=== PATIENT | male | born 1950 | race Caucasian/White ===

== ENCOUNTER 2017-01-01 10:27 | Day surgery (SDC) ==
[2017-01-01] MEDS ORDERED: DIPRIVAN 20 ML VIAL IVP ONE (13:00)
[2017-01-01] MEDS ORDERED: VERSED ONE (13:00)
[2017-01-01 14:28] VITALS: BP 141/82; TEMP 97
--- NOTE | 2017-01-02 13:34 | OP ---
INDICATIONS FOR PROCEDURE: 66-year-old gentleman presents for colonoscopy exam. He has a past history of polyps with the last colonoscopy five years ago, unknown pathology. He also has family history of colon polyps involving his mother and a maternal grandfather had colon cancer in his 60's. MEDICATIONS: SEE ANESTHESIA NOTES. PROCEDURE: COLONOSCOPY, SNARE POLYPECTOMY. REPORT: The risks, benefits, alternatives and limitations were discussed in detail with the patient. Informed consent was obtained. After adequate sedation was achieved, a digital rectal exam revealed good tone, no masses. The colonoscope was introduced into the rectum and advanced under direct visual guidance to the cecum. The cecum was identified by the appendiceal orifice and IC valve. I then slowly withdrew the scope in a circumferential manner examining the mucosa quite carefully. I looked on the proximal and distal side of folds and flexures as best as possible. In the distal cecal area there is a small 5 mm polyp that I removed by snare technique. On the distal side of the hepatic flexure there is a small 5 mm polyp that I removed by snare technique. There are several small mouth diverticula scattered throughout the descending and sigmoid colon. No other abnormalities were noted including on retroflex view of the anal canal. The prep was good. The withdrawal time was 11 minutes and 30 seconds. The patient tolerated the procedure well with stable vital signs and pulse oximetry throughout. IMPRESSION: 1. TWO (2) SMALL POLYPS REMOVED. 2. DIVERTICULOSIS. RECOMMENDATIONS: 1. High fiber diet. 2. Office visit as needed. 3. Await polyp pathology. If everything is benign as expected, I recommend repeat colonoscopy examination again in 5 years, sooner if signs or symptoms would indicate otherwise. CC: DR. ALISHA WILLIAMSON
== END 2017-01-01 14:30 | disposition home or self-care (01) ==
LOC: SURG 10:27
PROVIDERS: ATTEND Internal Medicine Gastroenterology
DX: Z09 Encounter for follow-up examination after completed treatment for conditions other than malignant neoplasm (principal); Z86.010 Personal history of colon polyps; D12.0 Benign neoplasm of cecum; D12.3 Benign neoplasm of transverse colon; K57.30 Diverticulosis of large intestine without perforation or abscess without bleeding; Z83.71 Family history of colonic polyps

== ENCOUNTER 2017-08-16 04:36 | Emergency (ER) ==
[2017-08-16 04:47] VITALS: BP 128/76; TEMP 100.7; BMI 32.3
[2017-08-16] MEDS ORDERED: TYLENOL PO STA (05:23)
--- NOTE | 2017-08-16 05:26 | ED.PDOC ---
General ED Provider: Dr. MASSIMO BROOKS Chief Complaint: Urinary Problem Stated Complaint: Burning, frequency, urgency. left flank is hurting fever . no chills Time Seen by Physician: 05:25 Mode of Arrival: Walk-In Information Source: Patient, Family Primary Care Provider: ALISHA CHAUDHARY Nursing and Triage Documentation Reviewed and Agree: Yes Reviewed sepsis parameters & appropriate labs ordered?: Yes System Inflammatory Response Syndrome: Not Applicable Sepsis Protocol: For patient's 13 years and over: Temp is 96.8 and below OR 101 and greater Pulse >90 BPM Resp >20/minute Acutely Altered Mental Status Are patient's symptoms suggestive of a new infection, such as: -Pneumonia -Skin, Soft Tissue -Endocarditis -UTI -Bone, Joint Infection -Implantable Device -Acute Abdominal Infection -Wound Infection -Meningitis -Blood Stream Catheter Infection -Unknown Complaint Exam - Complaint/Exam Patient Complains of: Reports: Dysuria Symptoms Are: Still present Timing: Constant Initial Severity: Moderate Current Severity: Moderate Location of Pain: Reports: Penis Character: Reports: Burning, Dull Aggravating: Reports: Voiding Alleviating: Reports: None Associated Signs and Symptoms: Reports: Decreased urine output, Increased urine frequency, Increased thirst, Decreased activity. Denies: Diaphoresis, Back pain , Fever, Hematuria, Dysuria, Constipation, Blood in stool, Rectal pain, Appetite change, Nausea, Vomiting, Penile swelling, Penile discharge, Lethargy, Scrotal pain, Scrotal swelling, Abdominal Pain Testicular Torsion Risk Factors: Reports: None Surgical Obstruction Risk Factors: Reports: None Related Surgical History: Reports: None Abdominal Findings: Present: CVA Tenderness Differential Diagnoses: Pyelonephritis, UTI Review of Systems - Review Of Systems Constitutional: Reports: Fever, Malaise, Weakness Eyes: Reports: No symptoms Ears, Nose, Mouth, Throat: Reports: No symptoms Respiratory: Reports: No symptoms Cardiac: Reports: No symptoms GI: Reports: No symptoms : Reports: Dysuria, Frequency, Flank pain Musculoskeletal: Reports: No symptoms Skin: Reports: No symptoms Neurological: Reports: No symptoms Endocrine: Reports: No symptoms Hematologic/Lymphatic: Reports: No symptoms All Other Systems: Reviewed and Negative Past Medical History - Past Medical History Previously Healthy: Yes Endocrine: Reports: None Cardiovascular: Reports: Hypertension Respiratory: Reports: None Hematological: Reports: None Gastrointestinal: Reports: None Genitourinary: Reports: None Neuro/Psych: Reports: Migraine Musculoskeletal: Reports: Joint Pain Cancer: Reports: None - Surgical History General Surgical History: Reports: Orthopedic (rt shoulder replacement) - Family History Family History: Reports: None - Social History Smoking Status: Former smoker Hx Substance Use: No Alcohol Screening: Occasionally - Immunizations Tetanus Shot up to Date: (UNKNOWN) Physical Exam - Physical Exam Appearance: Ill-appearing, Obese Eyes: MCKENNA, EOMI, Conjunctiva clear ENT: Ears normal, Nose normal, Oropharynx normal Respiratory: Airway patent, Breath sounds clear, Breath sounds equal, Respirations nonlabored Cardiovascular: RRR, Pulses normal, No rub, No murmur GI/: Tender (left cva) Musculoskeletal: Normal strength, ROM intact, No edema, No calf tenderness Skin: Warm, Dry, Normal color Neurological: Sensation intact, Motor intact, Reflexes intact, Cranial nerves intact, Alert, Oriented Psychiatric: Affect appropriate, Mood appropriate Interpretation - Radiology Interpretation Radiology Interpretation By: Radiologist Radiology Results: Negative Exam Interpreted: CT Scan Re-Evaluation - Re-Evaluation Time of Re-Evaluation: 06:46 Status: Improved Critical Care Note - Critical Care Note Total Time (mins): 30 Course - Course Hematology/Chemistry: 08/16/17 05:45 08/16/17 05:45 Orders, Labs, Meds: Lab Review 08/16/17 08/16/17 08/16/17 05:00 05:45 05:45 WBC 14.73 H RBC 4.91 Hgb 14.2 Hct 39.7 L MCV 80.9 MCH 28.9 MCHC 35.8 H RDW Coeff of Omid 13.2 Plt Count 146 Immature Gran % (Auto) 0.5 Neut % (Auto) 84.8 Lymph % (Auto) 6.4 L [place] % (Auto) 7.7 Eos % (Auto) 0.1 Baso % (Auto) 0.5 Immature Gran # (Auto) 0.1 Neut # (Auto) 12.5 H Lymph # (Auto) 1.0 [place] # (Auto) 1.1 Eos # (Auto) 0.0 Baso # (Auto) 0.1 Sodium 134 L Potassium 3.9 Chloride 105 Carbon Dioxide 20 L Anion Gap 12.9 BUN 15 Creatinine 0.99 Estimated GFR (MDRD) 75.00 BUN/Creatinine Ratio 15.15 Glucose 128 H Lactic Acid Calcium 9.2 Total Bilirubin 0.9 AST 16 ALT 19 Alkaline Phosphatase 49 L Total Protein 6.9 Albumin 3.6 Globulin 3.3 Albumin/Globulin Ratio 1.09 Procalcitonin Urine Color Yellow Urine Clarity Slightly Urine pH 5.5 Ur Specific [place] 1.010 Urine Protein Negative Urine Glucose (UA) Negative Urine Ketones Negative Urine Blood 1+ Urine Nitrite Negative Urine Bilirubin Negative Urine Urobilinogen 0.2 Ur Leukocyte Esterase 2+ Urine Microscopic RBC 0-2 Urine Microscopic WBC 20-30 Ur Squamous Epith Cells 0-2 Urine Bacteria 2+ 08/16/17 08/16/17 05:45 05:45 WBC RBC Hgb Hct MCV MCH MCHC RDW Coeff of Omid Plt Count Immature Gran % (Auto) Neut % (Auto) Lymph % (Auto) [place] % (Auto) Eos % (Auto) Baso % (Auto) Immature Gran # (Auto) Neut # (Auto) Lymph # (Auto) [place] # (Auto) Eos # (Auto) Baso # (Auto) Sodium Potassium Chloride Carbon Dioxide Anion Gap BUN Creatinine Estimated GFR (MDRD) BUN/Creatinine Ratio Glucose Lactic Acid 16.5 Calcium Total Bilirubin AST ALT Alkaline Phosphatase Total Protein Albumin Globulin Albumin/Globulin Ratio Procalcitonin 0.09 Urine Color Urine Clarity Urine pH Ur Specific [place] Urine Protein Urine Glucose (UA) Urine Ketones Urine Blood Urine Nitrite Urine Bilirubin Urine Urobilinogen Ur Leukocyte Esterase Urine Microscopic RBC Urine Microscopic WBC Ur Squamous Epith Cells Urine Bacteria Orders Category Date Time Status BLOOD CULTURE Stat LAB 08/16/17 05:45 Received CBC W/ AUTO DIFF Stat LAB 08/16/17 05:45 Completed COMPREHENSIVE METABOLIC PANEL Stat LAB 08/16/17 05:45 Completed LACTIC ACID Stat LAB 08/16/17 05:45 Completed PROCALCITONIN Stat LAB 08/16/17 05:45 Completed UA [URINALYSIS C & S IF INDICATED] Stat LAB 08/16/17 05:00 Completed URINE CULTURE Stat LAB 08/16/17 05:00 Received Acetaminophen [Tylenol] MEDS 08/16/17 05:23 Discontinued 500 mg PO ONCE STA Ceftriaxone Sodium [Rocephin] MEDS 08/16/17 05:42 Discontinued 1 gm IM ONCE STA Lidocaine HCl/Pf [Lidocaine HCl 1% Sdv] MEDS 08/16/17 05:42 Discontinued 2.1 ml IM ONCE STA CT ABDOMEN/PELVIS WO CONTRAST Stat RADS 08/16/17 05:23 Completed Medications Discontinued Medications Generic Name Dose Route Start Last Admin Trade Name Ileana PRN Reason Stop Dose Admin Acetaminophen 500 mg 08/16/17 05:23 08/16/17 05:27 Tylenol PO 08/16/17 05:24 500 mg ONCE STA Administration Ceftriaxone Sodium 1 gm 08/16/17 05:42 08/16/17 05:59 Rocephin IM 08/16/17 05:43 1 gm ONCE STA Administration Lidocaine HCl 2.1 ml 08/16/17 05:42 08/16/17 05:58 Lidocaine Hcl 1% Sdv IM 08/16/17 05:43 2.1 ml ONCE STA Administration Vital Signs: Temp Pulse Resp BP Pulse Ox 08/16/17 04:37 100.7 F H 106 H 32 H 128/76 95 Departure - Departure Time of Disposition: 06:46 Disposition: HOME SELF-CARE Discharge Problem: UTI (urinary tract infection) Qualifiers: Urinary tract infection type: acute cystitis Hematuria presence: with hematuria Qualified Code(s): N30.01 - Acute cystitis with hematuria Instructions: Urinary Tract Infection in Men (ED) Condition: Stable Pt referred to PMD for follow-up: Yes IPMP verified?: No Additional Instructions: Increase Hydration Take medication with food. Allergies/Adverse Reactions: Allergies No Known Allergies Allergy (Verified 08/16/17 04:48) Home Medications: Ambulatory Orders Cetirizine HCl [Zyrtec] 10 mg PO DAILY 01/01/17 Multivitamin [Multi-Vitamin Daily] 1 each PO DAILY 01/01/17 Propranolol HCl 60 mg PO BEDTIME 01/01/17 Propranolol HCl [Inderal Xl] 120 mg PO DAILY 01/01/17 Tizanidine HCl 4 mg PO BEDTIME 01/01/17 Tramadol HCl 50 mg PO BID 01/01/17 Disposition Discussed With: Patient
[2017-08-16] MEDS ORDERED: LIDOCAINE HCL 1% SDV IM STA (05:42)
[2017-08-16] MEDS ORDERED: ROCEPHIN IM STA (05:42)
--- NOTE | 2017-08-16 05:55 | CT ---
Exam: CT of the abdomen and pelvis without contrast History: Abdominal pain and dysuria Technique: [address] of the abdomen and pelvis without intravascular contrast FINDINGS: The lung bases are clear. No significant liver abnormality. The adrenals, pancreas and spl een are unremarkable. The stomach and hiatus are unremarkable.The gallbladder appears normal. Possibl e left proximal ureter urothelial thickening. There is no hydro ureter or hydronephrosis. Kidneys a nd proximal collecting system are unremarkable otherwise. The appendix is normal. Scattered neely col onic diverticulosis. Scattered colonic diverticulosis of the sigmoid. No pelvic fat inflammation. Possible urinary bladd er wall thickening with mildly distended urinary bladder. Generous prostate gland. No acute finding s of the skeleton. Impression: 1. Left sided ureter urothelial thickening, soft finding. Correlate for possible urinary tract infe ction. 2. Questionable urinary bladder wall thickening without perivesicular stranding. Correlate for cyst itis versus hypertrophy versus non distension pseudo thickening. 3. Neely colonic diverticulosis
== END 2017-08-16 06:45 | disposition home or self-care (01) ==
LOC: ED 04:36
DX: N30.01 Acute cystitis with hematuria (principal)
CPT/HCPCS: 36415; 80053; 81001; 83605; 84145; 85025; 87040; 87086; 87186; 96372; 99283

== ENCOUNTER 2017-09-02 12:12 | Emergency (ER) | payer OTHER ==
[2017-09-02 12:21] VITALS: BP 167/82; TEMP 98.4; BMI 32.4
--- NOTE | 2017-09-02 14:34 | CT ---
Exam: CT abdomen pelvis without intravenous contrast. Comparison: 08/16/2017. Reason for exam: Pain. FINDINGS: No pleural effusion, or focal consolidation in the partially imaged lung bases. The liver is lower in attenuation than the spleen. The gallbladder, pancreas, and adrenal glands appear grossly unremarkable within limitations of a non contrasted study. There is mild left-sided hydronephrosis with moderate left-sided hydroureter and a prominent extraren al pelvis. No nephrolithiasis or ureterolithiasis is seen in the left kidney. No hydronephrosis is seen in the right kidney. There is mild right-sided hydroureter with surroundin g inflammatory change. No nephrolithiasis or ureterolithiasis is seen in the right kidney. There is mild circumferential bladder wall thickening. No calcific densities are seen along the urogenital tract. No focal small bowel dilatation or transition point. The appendix is unremarkable. No intra-abdominal free air or pelvic free fluid. Scattered diverticular disease is seen throughout the colon. No suspicious appearing osteoblastic or osteolytic lesions. Impression: 1. Mild left-sided hydronephrosis with moderate hydroureter without evidence of radiopaque stone in t he left renal collecting system. Image interpretation is limited by the lack of intravenous contrast administration. 2. Mild right-sided hydroureter without evidence of radiopaque stone in the right renal collecting s ystem. 3. Mild circumferential bladder wall thickening. Imaging findings can be seen with cystitis and out let obstruction. Report faxed at [phone] hours on 09/02/2017.
[2017-09-02] MEDS ORDERED: ROCEPHIN IM STA (15:02)
[2017-09-02] MEDS ORDERED: LIDOCAINE HCL 1% SDV IM STA (15:02)
--- NOTE | 2017-09-02 15:07 | ED.PDOC ---
General ED Provider: Dr. SYED LEAL Chief Complaint: Urinary Problem Stated Complaint: HEMATURIA Time Seen by Physician: 12:20 Mode of Arrival: Walk-In Information Source: Patient, Family Exam Limitations: No limitations Primary Care Provider: ALISHA CHAUDHARY Nursing and Triage Documentation Reviewed and Agree: Yes Reviewed sepsis parameters & appropriate labs ordered?: Yes (HEMATURIA GROSS STARTED 1 DAY AGO) System Inflammatory Response Syndrome: Not Applicable Sepsis Protocol: For patient's 13 years and over: Temp is 96.8 and below OR 101 and greater Pulse >90 BPM Resp >20/minute Acutely Altered Mental Status Are patient's symptoms suggestive of a new infection, such as: -Pneumonia -Skin, Soft Tissue -Endocarditis -UTI -Bone, Joint Infection -Implantable Device -Acute Abdominal Infection -Wound Infection -Meningitis -Blood Stream Catheter Infection -Unknown System Inflammatory Response Syndrome: Not Applicable Complaint Exam - Complaint/Exam Patient Complains of: Denies: Scrotal pain (PAINLESS HEMATURIAX1 DAY), Scrotal swelling, Groin pain, Groin swelling, Dysuria Onset/Duration: 1 DAY Symptoms Are: Still present Timing: Intermittent Episodes of Voiding Over Last 12 Hours: 6 Initial Severity: Mild Location of Pain: Reports: Right, Left, Flank Character: Reports: Dull Aggravating: Reports: Voiding Alleviating: Reports: None Associated Signs and Symptoms: Reports: Back pain. Denies: Diaphoresis, Fever, Hematuria, Dysuria, Constipation, Blood in stool, Rectal pain, Appetite change, Nausea, Vomiting, Penile swelling, Penile discharge, Decreased urine output, Increased urine frequency, Increased thirst, Decreased activity, Lethargy, Scrotal pain, Scrotal swelling, Abdominal Pain Surgical Obstruction Risk Factors: Reports: None Related Surgical History: Reports: None Abdominal Findings: Present: None Differential Diagnoses: Other (HEMATURIA) Review of Systems - Review Of Systems Constitutional: Reports: No symptoms Eyes: Reports: No symptoms Ears, Nose, Mouth, Throat: Reports: No symptoms Respiratory: Reports: No symptoms Cardiac: Reports: No symptoms GI: Reports: No symptoms : Reports: Hematuria Musculoskeletal: Reports: No symptoms Skin: Reports: No symptoms Neurological: Reports: No symptoms Endocrine: Reports: No symptoms Hematologic/Lymphatic: Reports: No symptoms All Other Systems: Reviewed and Negative Past Medical History - Past Medical History Previously Healthy: Yes Endocrine: Reports: None Cardiovascular: Reports: Hypertension Respiratory: Reports: None Hematological: Reports: None Gastrointestinal: Reports: None Genitourinary: Reports: None Neuro/Psych: Reports: Migraine Musculoskeletal: Reports: Joint Pain Cancer: Reports: None - Surgical History General Surgical History: Reports: Orthopedic (rt shoulder replacement) - Family History Family History: Reports: None - Social History Smoking Status: Former smoker Hx Substance Use: No Alcohol Screening: Occasionally Physical Exam - Physical Exam Appearance: Well-appearing, No pain distress, Well-nourished Eyes: MCKENNA, EOMI, Conjunctiva clear ENT: Ears normal, Nose normal, Oropharynx normal Respiratory: Airway patent, Breath sounds clear, Breath sounds equal, Respirations nonlabored Cardiovascular: RRR, Pulses normal, No rub, No murmur GI/: Soft, Nontender, No masses, Bowel sounds normal, No Organomegaly Musculoskeletal: Normal strength, ROM intact, No edema, No calf tenderness Skin: Warm, Dry, Normal color Neurological: Sensation intact, Motor intact, Reflexes intact, Cranial nerves intact, Alert, Oriented Psychiatric: Affect appropriate, Mood appropriate Interpretation - Radiology Interpretation Radiology Interpretation By: Radiologist Radiology Results: No acute changes Critical Care Note - Critical Care Note Total Time (mins): 0 Course - Course Hematology/Chemistry: 09/02/17 12:55 09/02/17 12:55 Orders, Labs, Meds: Lab Review 09/02/17 09/02/17 09/02/17 12:40 12:55 12:55 WBC 13.76 H RBC 4.99 Hgb 14.4 Hct 40.8 L MCV 81.8 MCH 28.9 MCHC 35.3 RDW Coeff of Omid 13.8 Plt Count 189 Immature Gran % (Auto) 0.7 Neut % (Auto) 74.5 Lymph % (Auto) 9.2 L [place] % (Auto) 14.8 H Eos % (Auto) 0.1 Baso % (Auto) 0.7 Immature Gran # (Auto) 0.1 Neut # (Auto) 10.3 H Lymph # (Auto) 1.3 [place] # (Auto) 2.0 Eos # (Auto) 0.0 Baso # (Auto) 0.1 PT INR APTT Sodium 133 L Potassium 4.2 Chloride 99 Carbon Dioxide 22 L Anion Gap 16.2 BUN 10 Creatinine 0.89 Estimated GFR (MDRD) 85.00 BUN/Creatinine Ratio 11.23 Glucose 111 Calcium 9.0 Total Bilirubin 1.6 H AST 16 ALT 25 Alkaline Phosphatase 51 L Total Protein 7.5 Albumin 3.4 Globulin 4.1 Albumin/Globulin Ratio 0.83 Urine Color Yellow Urine Clarity Cloudy Urine pH 6.0 Ur Specific [place] 1.010 Urine Protein 2+ Urine Glucose (UA) Negative Urine Ketones Negative Urine Blood 3+ Urine Nitrite Negative Urine Bilirubin Negative Urine Urobilinogen 0.2 Ur Leukocyte Esterase 2+ Urine Microscopic RBC Tntc Urine Microscopic WBC Tntc Ur Squamous Epith Cells Not present Urine Bacteria 1+ 09/02/17 12:55 WBC RBC Hgb Hct MCV MCH MCHC RDW Coeff of Omid Plt Count Immature Gran % (Auto) Neut % (Auto) Lymph % (Auto) [place] % (Auto) Eos % (Auto) Baso % (Auto) Immature Gran # (Auto) Neut # (Auto) Lymph # (Auto) [place] # (Auto) Eos # (Auto) Baso # (Auto) PT 9.3 INR 0.93 APTT 33.2 Sodium Potassium Chloride Carbon Dioxide Anion Gap BUN Creatinine Estimated GFR (MDRD) BUN/Creatinine Ratio Glucose Calcium Total Bilirubin AST ALT Alkaline Phosphatase Total Protein Albumin Globulin Albumin/Globulin Ratio Urine Color Urine Clarity Urine pH Ur Specific [place] Urine Protein Urine Glucose (UA) Urine Ketones Urine Blood Urine Nitrite Urine Bilirubin Urine Urobilinogen Ur Leukocyte Esterase Urine Microscopic RBC Urine Microscopic WBC Ur Squamous Epith Cells Urine Bacteria Orders Category Date Time Status CBC W/ AUTO DIFF Stat LAB 09/02/17 12:55 Completed COMPREHENSIVE METABOLIC PANEL Stat LAB 09/02/17 12:55 Completed PARTIAL THROMBOPLASTIN TIME Stat LAB 09/02/17 12:55 Completed PT WITH INR Stat LAB 09/02/17 12:55 Completed URINALYSIS C & S IF INDICATED Stat LAB 09/02/17 12:40 Completed URINE CULTURE Stat LAB 09/02/17 12:40 Received Ceftriaxone Sodium [Rocephin] MEDS 09/02/17 15:02 Stat 1 gm IM ONCE STA Lidocaine HCl/Pf [Lidocaine HCl 1% Sdv] MEDS 09/02/17 15:02 Stat 2.1 ml IM ONCE STA CT ABD/PEL WO RENAL STONE PROT Stat RADS 09/02/17 12:45 Completed Medications Discontinued Medications Generic Name Dose Route Start Last Admin Trade Name Freq PRN Reason Stop Dose Admin Ceftriaxone Sodium 1 gm 09/02/17 15:02 Rocephin IM 04/02/18 15:03 ONCE STA Lidocaine HCl 2.1 ml 09/02/17 15:02 Lidocaine Hcl 1% Sdv IM 09/02/17 15:03 ONCE STA Vital Signs: Temp Pulse Resp BP Pulse Ox 09/02/17 12:16 98.4 F 71 20 167/82 H 96 Departure - Departure Time of Disposition: 16:00 Disposition: HOME SELF-CARE Discharge Problem: Hematuria Qualifiers: Hematuria type: unspecified type Qualified Code(s): R31.9 - Hematuria, unspecified Instructions: Hematuria (ED) Condition: Good Pt referred to PMD for follow-up: Yes IPMP verified?: No Additional Instructions: SEE UROLOGY WE DISCUSSED Allergies/Adverse Reactions: Allergies No Known Allergies Allergy (Verified 09/02/17 12:15) Home Medications: Ambulatory Orders Cetirizine HCl [Zyrtec] 10 mg PO DAILY 01/01/17 Multivitamin [Multi-Vitamin Daily] 1 each PO DAILY 01/01/17 Propranolol HCl 60 mg PO BEDTIME 01/01/17 Propranolol HCl [Inderal Xl] 120 mg PO DAILY 01/01/17 Tizanidine HCl 4 mg PO BEDTIME 01/01/17 Tramadol HCl 50 mg PO BID 01/01/17 Disposition Discussed With: Patient, Family
== END 2017-09-02 16:01 | disposition home or self-care (01) ==
LOC: ED 12:12
DX: R31.0 Gross hematuria (principal); M54.9 Dorsalgia, unspecified; I10 Essential (primary) hypertension; Z79.899 Other long term (current) drug therapy
CPT/HCPCS: 36415; 74176; 80053; 81001; 85025; 85610; 85730; 87086; 87186; 96372; 99283

== ENCOUNTER 2018-04-08 16:12 | Outpatient (CLI) ==
--- NOTE | 2018-04-08 16:56 | DI ---
EXAM: Two views of the chest History: Bronchitis. Findings: Heart size is normal. Atherosclerotic vascular calcifications. There is bronchial wall t hickening and mild left basilar infiltrate. No appreciable pleural fluid and no pneumothorax. No ac [place] osseous abnormalities. Right shoulder arthroplasty hardware. Impression: Bronchial wall thickening and mild left basilar infiltrate suspicious for pneumonia
== END 2018-04-08 16:13 | disposition home or self-care (01) ==
LOC: RAD 16:12
PROVIDERS: ATTEND Family Medicine
DX: J40 Bronchitis, not specified as acute or chronic (principal)

== ENCOUNTER 2018-09-08 15:36 | Outpatient (CLI) | payer OTHER ==
[2018-05-06 22:35] VITALS: BMI 33.3
--- NOTE | 2018-09-08 15:52 | DI ---
EXAM: CHEST FRONTAL AND LATERAL VIEWS HISTORY: Cough. COMPARISON: 05/06/2018 FINDINGS: Heart size and mediastinal contour remain within normal limits. There is at least mild atherosclerotic disease. No acute infiltrates are seen. No vascular congestion. There is no consol idation, visible pleural fluid or pneumothorax. Bones reveal no acute fracture. Right shoulder pro sthesis. IMPRESSION: No acute cardiopulmonary process.
== END 2018-09-08 15:37 | disposition home or self-care (01) ==
LOC: RAD 15:36
PROVIDERS: ATTEND Family Medicine
DX: R05 Cough (principal)

== ENCOUNTER 2018-10-12 14:17 | Emergency (ER) | payer OTHER ==
[2018-10-12 14:35] VITALS: BP 160/87; TEMP 97.6; BMI 31.6
[2018-10-12] MEDS ORDERED: TENIVAC IM ONE (14:37)
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
--- NOTE | 2018-10-12 15:17 | ED.PDOC ---
General ED Provider: Dr. SYED LEAL Chief Complaint: Hand Pain/Injury Stated Complaint: puncture wound left hand Time Seen by Physician: 14:33 (seen with esthela ) Mode of Arrival: Walk-In Information Source: Patient Exam Limitations: No limitations Primary Care Provider: ALISHA CHAUDHARY Nursing and Triage Documentation Reviewed and Agree: Yes Does patient meet sepsis criteria?: No System Inflammatory Response Syndrome: Not Applicable (see photos . all sensation of the hand volar / dorsal aspect intact) Sepsis Protocol: For patient's 13 years and over: Temp is 96.8 and below OR 101 and greater Pulse >90 BPM Resp >20/minute Acutely Altered Mental Status Are patient's symptoms suggestive of a new infection, such as: -Pneumonia -Skin, Soft Tissue -Endocarditis -UTI -Bone, Joint Infection -Implantable Device -Acute Abdominal Infection -Wound Infection -Meningitis -Blood Stream Catheter Infection -Unknown Musculoskeletal Complaint Exam - Upper Extremity Complaint/Exam Location of Pain: Reports: Left (hand see photos) Mechanism of Injury: Reports: Trauma ( sharp object) Onset/Duration: 1 hrago Symptoms Are: Still present Timing: Constant Episodes Lasting: Minutes Initial Severity: Mild Current Severity: Mild Location: Reports: Discrete (left hand ) Character: Reports: Aching Aggravating: Reports: None Alleviating: Reports: Rest Non-Orthopedic Risk Factors: Reports: None DVT Risk Factors: Reports: None Septic Arthritis Risk Factors: Reports: None Related Surgical History: Reports: None Upper Extremity Findings: Present: Laceration NV Bundle Intact Distal to Injury: Yes Differential Diagnoses: Closed Fracure Review of Systems - Review Of Systems Constitutional: Reports: No symptoms Eyes: Reports: No symptoms Ears, Nose, Mouth, Throat: Reports: No symptoms Respiratory: Reports: No symptoms Cardiac: Reports: No symptoms GI: Reports: No symptoms : Reports: No symptoms Musculoskeletal: Reports: No symptoms Skin: Reports: Other (puncture wound left hand ) Neurological: Reports: No symptoms Endocrine: Reports: No symptoms Hematologic/Lymphatic: Reports: No symptoms All Other Systems: Reviewed and Negative Past Medical History - Past Medical History Previously Healthy: Yes Endocrine: Reports: None Cardiovascular: Reports: Hypertension Respiratory: Reports: None Hematological: Reports: None Gastrointestinal: Reports: None Genitourinary: Reports: None Neuro/Psych: Reports: Migraine Musculoskeletal: Reports: Joint Pain Cancer: Reports: None - Surgical History General Surgical History: Reports: Orthopedic (rt shoulder replacement) - Family History Family History: Reports: None - Social History Smoking Status: Former smoker Hx Substance Use: No Alcohol Screening: Occasionally - Immunizations Tetanus Shot up to Date: No Physical Exam - Physical Exam Appearance: Well-appearing, No pain distress, Well-nourished Eyes: MCKENNA, EOMI, Conjunctiva clear ENT: Ears normal, Nose normal, Oropharynx normal Respiratory: Airway patent, Breath sounds clear, Breath sounds equal, Respirations nonlabored Cardiovascular: RRR, Pulses normal, No rub, No murmur GI/: Soft, Nontender, No masses, Bowel sounds normal, No Organomegaly Musculoskeletal: Normal strength, ROM intact, No edema, No calf tenderness Skin: Warm, Dry (puncture wound dorsal left hand see photos) Neurological: Sensation intact, Motor intact, Reflexes intact, Cranial nerves intact, Alert, Oriented Psychiatric: Affect appropriate, Mood appropriate Interpretation - Radiology Interpretation Radiology Interpretation By: Radiologist Radiology Results: No acute changes Procedures - Laceration/Wound Repair No standard instances Wound Description: Other (PUNCTURE WOUND LEFT HAND SEE PHOTS) Wound Length (cm): 3MM Wound Width: 2MM Wound Depth: 1MM Wound Explored: Clean Wound Prep: Saline, Hibiclens (WOUND LEFT OPEN . ANTIBIOTICS RX GIVEN) Critical Care Note - Critical Care Note Total Time (mins): 0 Course - Course Orders, Labs, Meds: Orders Category Date Time Status Tetanus and Diphtheria Tox/Pf [Tenivac] MEDS 10/12/18 14:37 Discontinued 0.5 ml IM .ONCE ONE HAND, LEFT 3 VIEWS Stat RADS 10/12/18 14:36 Completed Medications Discontinued Medications Generic Name Dose Route Start Last Admin Trade Name Freq PRN Reason Stop Dose Admin Tetanus/Diphtheria Toxoids Adsorbed 0.5 ml 10/12/18 14:37 Tenivac IM 10/12/18 14:38 .ONCE ONE Vital Signs: Temp Pulse Resp BP Pulse Ox 10/12/18 14:17 97.6 F 69 16 160/87 H 96 Departure - Departure Time of Disposition: 15:17 Disposition: HOME SELF-CARE Discharge Problem: Injury of hand Puncture wound, hand Qualifiers: Encounter type: initial encounter Foreign body presence: without foreign body Laterality: left Qualified Code(s): S61.432A - Puncture wound without foreign body of left hand, initial encounter Instructions: Puncture Wound (ED) Condition: Good Pt referred to PMD for follow-up: Yes IPMP verified?: No Additional Instructions: Please call your Family Physician as soon as possible to schedule a follow-up appointment. Allergies/Adverse Reactions: Allergies No Known Allergies Allergy (Verified 10/12/18 15:07) Home Medications: Ambulatory Orders Cetirizine HCl [Zyrtec] 10 mg PO DAILY 01/01/17 Multivitamin [Multi-Vitamin Daily] 1 each PO DAILY 01/01/17 Propranolol HCl 60 mg PO BEDTIME 01/01/17 Propranolol HCl [Inderal Xl] 120 mg PO DAILY 01/01/17 Tizanidine HCl 4 mg PO BEDTIME 01/01/17 Tramadol HCl 50 mg PO BID 01/01/17 Amoxicillin 500 mg PO Q8HR #21 tablet 10/12/18
== END 2018-10-12 15:36 | disposition home or self-care (01) ==
LOC: ED 14:17
DX: S61.432A Puncture wound without foreign body of left hand, initial encounter (principal); W26.9XXA Contact with unspecified sharp object(s), initial encounter
CPT/HCPCS: 90471; 90714; 99283